=== PATIENT | male | born 1950 | race Two or more races ===

== ENCOUNTER → 2025-03-13 | Outpatient (CLI) | payer MEDICARE, MEDICAID, SELFPAY ==
[2025-03-13 11:38] LABS: Prothrombin Time 10.5 Seconds (9.0-12.2)
[2025-03-13 11:44] LABS: AFP Non-Pregnant < 1.30 ng/mL (<8.10)
[2025-03-13 11:48] LABS: Ferritin 101 ng/mL (10.5-307.3); Iron 107 mcg/dL (65-175); Total Iron Binding Capacity 311 mcg/dL (250-425)
[2025-03-13 11:51] LABS: Alanine Aminotransferase 24 U/L (10-49); Albumin, Serum 4.7 gm/dL (3.4-4.8); Alkaline Phosphatase 76 U/L (46-116); Aspartate Amino Transferase 23 U/L (0-34); Bilirubin,Direct 0.2 mg/dL (0.0-0.3); Bilirubin,Total 0.6 mg/dL (0.3-1.2); Total Protein 7.2 gm/dL (5.7-8.2)
[2025-03-21 06:48] LABS: ANA Screen, IFA NEGATIVE (NEGATIVE); Alpha-1-Antitrypsin* 150 mg/dL (83-199); Ceruloplasmin* 23 mg/dL (14-30); Copper* 106 mcg/dL (70-175); Mitochondrial Ab NEGATIVE (NEGATIVE)
[2025-03-21 06:49] LABS: Sm Antibody* <1.0 NEG AI (<1.0 NEGATIVE)
== END | disposition home or self-care (01) ==
LOC: COPL 10:09
PROVIDERS: Referring Provider Specialist; Visit Provider Specialist
DX: R94.5 Abnormal results of liver function studies (principal)
CPT/HCPCS: 36415; 80076; 82103; 82105; 82390; 82525; 82728; 83540; 83550; 85610; 86038; 86235; 86255